=== PATIENT | female | born 1950 | race Caucasian/White ===

== ENCOUNTER 2020-11-22 14:34 | Inpatient (IN) | payer MEDICARE ==
[~2020-11-22] VITALS: Ht 165.1 cm; Wt 102.0 kg
[~2020-11-22 14:34] MED LIST: ALLOPURINOL 10100 MG PO; AZITHROMYCIN250 MG PO; BUMEX1 MG PO; BUSPAR5 MG PO; CEFDINIR300 MG PO; COLCHICINE0.6 MG PO; DUONEB 2.5-0.5M1 AMP NEB; FEOSOL325 MG PO; K-DUR20 MEQ PO; LASIX20 MG PO; LEVAQUIN750 MG PO; LOTRIMIN30 ML TOP; MEDROL 4MG DOSEP4 MG PO; MUCINEX1200 MG PO; POTASSIUM CHLO10 ME2 PO; PREDNISONE 20MG20 MG PO; PREDNISONE5 MG PO; SINGULAIR10 MG PO; SPIRIVA18 MCG INH; SYMBICORT 1601 PUFFS INH; SYMBICORT 80-10.2 GM INH; VENTOLIN (2.5 MG/3 M NEB; VENTOLIN HFA IN18 GM INH; XANAX0.5 MG PO; XARELTO15 MG PO; ZESTORETIC 20-1 EAC1 PO; ZYRTEC10 MG PO
[2020-11-22 15:00] LABS: BASOPHIL 0.1 % (0-2); EOSINOPHIL 0 % (0-7); HGB 6.7 g/dl (12.5-16.0); LYMPHOCYTE 3.8 % (15-48); MCH 27.6 pg (25.0-31.0); MCHC 29.1 g/dL (32.0-36.0); MCV 94.7 fL (78.0-100.0); MONOCYTE 1.2 % (0-12); MPV 10.7 fL (6.0-9.5); NEUTROPHIL 93.7 % (41-80); NRBC 0.5; PLT 250 K/uL (150-400); RBC 2.43 M/uL (4.20-5.40); RDW 18.1 % (11.5-14.0)
[2020-11-22 15:09] LABS: WBC 8.5 K/uL (4.0-10.5)
[2020-11-22 15:29] LABS: PRO-BNP 1767 pg/mL (<125)
[2020-11-22 15:38] LABS: LACTIC ACID 0.8 mmol/L (0.4-1.9)
[2020-11-22 16:43] LABS: ALBUMIN 3.3 g/dL (3.4-5.0); BILIRUBIN - TOTAL 0.3 mg/dL (0.2-1.0); CREATININE 2.77 mg/dL (0.51-0.95); GLOBULIN (CALCULATION) 3.4 g/dL; POTASSIUM 5.7 mmol/L (3.5-5.1); TOTAL PROTEIN 6.7 g/dL (6.4-8.2)
[2020-11-22 17:55] LABS: BILIRUBIN NEGATIVE (NEGATIVE); BLOOD NEGATIVE Ery/uL (NEGATIVE); GLUCOSE (U) NORMAL (NORMAL); LEUKOCYTES 1+ Leu/uL (NEGATIVE); NITRITE NEGATIVE (NEGATIVE); PROTEIN NEGATIVE (NEGATIVE); SPECIFIC GRAVITY 1.015 (1.001-1.030); UROBILINOGEN 0.2 mg/dL (0.2-1.0); pH 5.5 (5.0-9.0)
[2020-11-22 17:56] LABS: COLOR STRAW (YELLOW)
[2020-11-22 17:57] LABS: CLARITY CLEAR (CLEAR)
[2020-11-22 18:02] LABS: BACTERIA TRACE
[2020-11-22 18:03] LABS: YEAST PRESENT
[2020-11-22 23:40] LABS: CREATININE 2.5 mg/dL (0.51-0.95); POTASSIUM 5.9 mmol/L (3.5-5.1)
[2020-11-22 23:42] LABS: HCT 30.5 % (37.0-47.0)
[2020-11-22 23:47] LABS: HGB 9.2 g/dL (12.5-16.0)
[2020-11-23 06:56] LABS: BASOPHIL 0.2 % (0-2); EOSINOPHIL 0 % (0-7); HCT 29.9 % (37.0-47.0); MCH 28.1 pg (25.0-31.0); MCHC 30.1 g/dL (32.0-36.0); MCV 93.4 fL (78.0-100.0); MONOCYTE 11.4 % (0-12); MPV 10.6 fL (6.0-9.5); NRBC 1.2; PLT 242 K/uL (150-400); RDW 17.6 % (11.5-14.0); WBC 9.5 K/uL (4.0-10.5)
[2020-11-23 07:13] LABS: CREATININE 2.51 mg/dL (0.51-0.95); POTASSIUM 5.1 mmol/L (3.5-5.1)
[2020-11-23] MEDS ORDERED: MUCINEX 600MG600 MG PO (12:41)
[2020-11-23] MEDS ORDERED: PREDNISONE 20MG20 MG PO (12:45)
[2020-11-24 06:47] LABS: BASOPHIL 0.3 % (0-2); EOSINOPHIL 1.1 % (0-7); HCT 31.9 % (37.0-47.0); HGB 9.3 g/dl (12.5-16.0); MCH 28.6 pg (25.0-31.0); MCHC 29.2 g/dL (32.0-36.0); MONOCYTE 8.9 % (0-12); NEUTROPHIL 78.4 % (41-80); NRBC 0.7; RBC 3.25 M/uL (4.20-5.40); RDW 18.1 % (11.5-14.0); WBC 9.7 K/uL (4.0-10.5)
[2020-11-24 07:01] LABS: CREATININE 3.1 mg/dL (0.51-0.95); POTASSIUM 4.7 mmol/L (3.5-5.1)
[2020-11-24 07:33] LABS: MCV 98.2 fL (78.0-100.0)
[2020-11-24 07:34] LABS: PLT 219 K/uL (150-400)
[2020-11-25 04:29] LABS: BASOPHIL 0.2 % (0-2); EOSINOPHIL 2.8 % (0-7); HCT 28.9 % (37.0-47.0); HGB 8.5 g/dl (12.5-16.0); LYMPHOCYTE 7.3 % (15-48); MCH 28.1 pg (25.0-31.0); MCHC 29.4 g/dL (32.0-36.0); MCV 95.7 fL (78.0-100.0); MONOCYTE 7.1 % (0-12); MPV 10.6 fL (6.0-9.5); NEUTROPHIL 81.6 % (41-80); NRBC 0.8; PLT 220 K/uL (150-400); RBC 3.02 M/uL (4.20-5.40); RDW 17.8 % (11.5-14.0); WBC 12.5 K/uL (4.0-10.5)
[2020-11-25 04:55] LABS: CREATININE 2.99 mg/dL (0.51-0.95); POTASSIUM 4.5 mmol/L (3.5-5.1)
[2020-11-26 04:09] LABS: BASOPHIL 0.3 % (0-2); EOSINOPHIL 6.1 % (0-7); HCT 29.6 % (37.0-47.0); HGB 8.7 g/dl (12.5-16.0); LYMPHOCYTE 12.7 % (15-48); MCH 28.2 pg (25.0-31.0); MCHC 29.4 g/dL (32.0-36.0); MCV 95.8 fL (78.0-100.0); MONOCYTE 7.6 % (0-12); MPV 10.6 fL (6.0-9.5); NEUTROPHIL 72.1 % (41-80); NRBC 0.5; PLT 217 K/uL (150-400); RBC 3.09 M/uL (4.20-5.40); RDW 17.8 % (11.5-14.0)
[2020-11-26 04:36] LABS: CREATININE 2.61 mg/dL (0.51-0.95); POTASSIUM 4.2 mmol/L (3.5-5.1)
[2020-11-27 04:20] LABS: BASOPHIL 0.3 % (0-2); EOSINOPHIL 7.6 % (0-7); HCT 26.9 % (37.0-47.0); HGB 7.7 g/dl (12.5-16.0); MCH 28.4 pg (25.0-31.0); MCHC 28.6 g/dL (32.0-36.0); MCV 99.3 fL (78.0-100.0); MONOCYTE 9.8 % (0-12); MPV 10.7 fL (6.0-9.5); NEUTROPHIL 68.1 % (41-80); NRBC 0.3; PLT 194 K/uL (150-400); RBC 2.71 M/uL (4.20-5.40); RDW 18.2 % (11.5-14.0); WBC 10.9 K/uL (4.0-10.5)
[2020-11-27 04:36] LABS: CREATININE 3.51 mg/dL (0.51-0.95); POTASSIUM 4.3 mmol/L (3.5-5.1)
[2020-11-27 08:10] LABS: HCT 28.3 % (37.0-47.0)
[2020-11-27 23:56] LABS: URINE CREATININE 196.32 mg/dL (29.00-226.00)
[2020-11-28 03:48] LABS: BASOPHIL 0.2 % (0-2); EOSINOPHIL 7.6 % (0-7); HCT 31.5 % (37.0-47.0); LYMPHOCYTE 9.8 % (15-48); MCH 27.9 pg (25.0-31.0); MCHC 28.6 g/dL (32.0-36.0); MCV 97.5 fL (78.0-100.0); MONOCYTE 9.9 % (0-12); NEUTROPHIL 71.7 % (41-80); NRBC 0; PLT 186 K/uL (150-400); RBC 3.23 M/uL (4.20-5.40); RDW 17.5 % (11.5-14.0)
[2020-11-28 04:11] LABS: CREATININE 2.87 mg/dL (0.51-0.95); POTASSIUM 4.3 mmol/L (3.5-5.1)
[2020-11-29 03:51] LABS: BASOPHIL 0.3 % (0-2); EOSINOPHIL 8.1 % (0-7); HCT 26.9 % (37.0-47.0); HGB 7.9 g/dl (12.5-16.0); LYMPHOCYTE 10.3 % (15-48); MCH 28.8 pg (25.0-31.0); MCHC 29.4 g/dL (32.0-36.0); MCV 98.2 fL (78.0-100.0); MONOCYTE 12.4 % (0-12); MPV 10.8 fL (6.0-9.5); NEUTROPHIL 67.8 % (41-80); NRBC 0.2; PLT 146 K/uL (150-400); RBC 2.74 M/uL (4.20-5.40); RDW 17.2 % (11.5-14.0); WBC 8.7 K/uL (4.0-10.5)
[2020-11-29 04:06] LABS: CREATININE 2.39 mg/dL (0.51-0.95); MAGNESIUM 1.7 mg/dL (1.8-2.4)
[2020-11-30 04:29] LABS: BASOPHIL 0.2 % (0-2); EOSINOPHIL 7.8 % (0-7); HCT 27.9 % (37.0-47.0); HGB 8.2 g/dl (12.5-16.0); LYMPHOCYTE 8.8 % (15-48); MCH 28.5 pg (25.0-31.0); MCHC 29.4 g/dL (32.0-36.0); MCV 96.9 fL (78.0-100.0); MONOCYTE 12.9 % (0-12); MPV 10.6 fL (6.0-9.5); NEUTROPHIL 69.2 % (41-80); NRBC 0; PLT 168 K/uL (150-400); RBC 2.88 M/uL (4.20-5.40); RDW 16.9 % (11.5-14.0)
[2020-11-30 04:49] LABS: ALBUMIN 2.6 g/dL (3.4-5.0); BILIRUBIN - TOTAL 0.5 mg/dL (0.2-1.0); CREATININE 2.41 mg/dL (0.51-0.95); GLOBULIN (CALCULATION) 2.8 g/dL; POTASSIUM 4.3 mmol/L (3.5-5.1); TOTAL PROTEIN 5.4 g/dL (6.4-8.2)
[2020-11-30] MEDS ORDERED: PROTONIX20 MG PO (11:52)
--- NOTE | 2020-11-30 18:13 | NUR ---
PT D/C CENTRAL LINE REMOVED AND CAMPOS.NO SIGNS OF BLEEDING FROM THE CENTRAL LINE. BELONGING AND PAPERWORK SENT WITH HER DAUGHTER
== END 2020-11-30 17:58 | disposition home health service (06) | DRG 377 ==
LOC: FER 14:34 → FTCU 11-23 07:56 → FOFB 11-23 07:56 → FTCU 11-23 07:57
PROVIDERS: Allergy & Immunology Allergy; Emergency Medicine; Internal Medicine; ADMIT Internal Medicine
PROC: 30233N1 Transfusion of Nonautologous Red Blood Cells into Peripheral Vein, Percutaneous Approach (ICD-10-PCS; 2020-11-22)
PROC: 05HM33Z Insertion of Infusion Device into Right Internal Jugular Vein, Percutaneous Approach (ICD-10-PCS; principal; 2020-11-24)
PROC: B543ZZA Ultrasonography of Right Jugular Veins, Guidance (ICD-10-PCS; 2020-11-24)
PROC: 30233N1 Transfusion of Nonautologous Red Blood Cells into Peripheral Vein, Percutaneous Approach (ICD-10-PCS; 2020-11-27)
DX: K57.31 Diverticulosis of large intestine without perforation or abscess with bleeding (principal); J96.01 Acute respiratory failure with hypoxia; G93.41 Metabolic encephalopathy; N17.9 Acute kidney failure, unspecified; I48.20 Chronic atrial fibrillation, unspecified; D62 Acute posthemorrhagic anemia; E87.2 Acidosis; I50.32 Chronic diastolic (congestive) heart failure; Z20.822 Contact with and (suspected) exposure to COVID-19; J43.9 Emphysema, unspecified; I49.5 Sick sinus syndrome; F41.1 Generalized anxiety disorder; N18.9 Chronic kidney disease, unspecified; G47.33 Obstructive sleep apnea (adult) (pediatric); K59.09 Other constipation; Z99.81 Dependence on supplemental oxygen; Z95.0 Presence of cardiac pacemaker; Z79.01 Long term (current) use of anticoagulants; Z90.89 Acquired absence of other organs; Z98.890 Other specified postprocedural states; Z82.49 Family history of ischemic heart disease and other diseases of the circulatory system; Z87.891 Personal history of nicotine dependence; Z79.51 Long term (current) use of inhaled steroids; Z79.899 Other long term (current) drug therapy; Z88.7 Allergy status to serum and vaccine; Z91.041 Radiographic dye allergy status
CPT/HCPCS: 36415; 36430; 36600; 71045; 71250; 78278; 80048; 80053; 81001; 82570; 82803; 83605; 83735; 83880; 84145; 84300; 84484; 85014; 85018; 85025; 85379; 86850; 86900; 86901; 86922; 93005; 94640; 94660; A4641; A9560; C9113; J2060; J3475; J7030; J7040; J7050; J7070; P9016; U0002

== ENCOUNTER 2020-12-10 17:01 | Emergency (ER) | payer MEDICARE ==
[~2020-12-10] VITALS: Ht 165.1 cm; Wt 99.8 kg
[~2020-12-10 17:01] MED LIST changes: +MUCINEX 600MG600 MG PO; +PROTONIX20 MG PO
[2020-12-10 18:14] LABS: BASOPHIL 0.7 % (0-2); EOSINOPHIL 8.3 % (0-7); HCT 32.1 % (37.0-47.0); HGB 9.3 g/dl (12.5-16.0); LYMPHOCYTE 10.1 % (15-48); MCV 96.7 fL (78.0-100.0); MONOCYTE 7.4 % (0-12); MPV 10.6 fL (6.0-9.5); NEUTROPHIL 72.8 % (41-80); NRBC 0; PLT 259 K/uL (150-400); RBC 3.32 M/uL (4.20-5.40); RDW 16.7 % (11.5-14.0); WBC 8.9 K/uL (4.0-10.5)
[2020-12-10 18:24] LABS: INR 0.98 (0.9-1.2); PROTHROMBIN TIME 12.4 SECONDS (11.8-13.4); PTT 26.2 SECONDS (24.4-34.7)
[2020-12-10 18:28] LABS: ALBUMIN 2.9 g/dL (3.4-5.0); BILIRUBIN - TOTAL 0.4 mg/dL (0.2-1.0); BUN/CREAT RATIO (CALC) 34.1 RATIO; CREATININE 1.23 mg/dL (0.51-0.95); GLOBULIN (CALCULATION) 3.8 g/dL; TOTAL PROTEIN 6.7 g/dL (6.4-8.2)
[2020-12-10 18:34] LABS: POTASSIUM 5.8 mmol/L (3.5-5.1); PRO-BNP 1139 pg/mL (<125)
[2020-12-10 18:42] LABS: BILIRUBIN NEGATIVE (NEGATIVE); BLOOD NEGATIVE Ery/uL (NEGATIVE); CLARITY CLEAR (CLEAR); COLOR YELLOW (YELLOW); GLUCOSE (U) NORMAL (NORMAL); LEUKOCYTES NEGATIVE Leu/uL (NEGATIVE); NITRITE NEGATIVE (NEGATIVE); PROTEIN NEGATIVE (NEGATIVE); UROBILINOGEN 0.2 mg/dL (0.2-1.0); pH 5.5 (5.0-9.0)
== END 2020-12-10 19:05 | disposition home or self-care (01) ==
LOC: FER 17:01
PROVIDERS: Emergency Medicine
DX: S51.812A Laceration without foreign body of left forearm, initial encounter (principal); I50.9 Heart failure, unspecified; N18.9 Chronic kidney disease, unspecified; Z91.041 Radiographic dye allergy status; W18.30XA Fall on same level, unspecified, initial encounter; Y92.009 Unspecified place in unspecified non-institutional (private) residence as the place of occurrence of the external cause
CPT/HCPCS: 36415; 71045; 80053; 81003; 83880; 84484; 85025; 85610; 85730; 93005